=== PATIENT | female | born 1995 | race Caucasian/White ===

== ENCOUNTER 2019-03-15 09:01 | Emergency (ER) | payer OTHER ==
[2019-03-15 09:39] VITALS: BP 106/62
--- NOTE | 2019-03-15 10:16 | ER Document Report ---
HPI - HPI Patient complains to provider of: Skin rash Time Seen by Provider: 03/15/19 10:07 Onset/Duration: Worse Quality of pain: Burning Pain Level: 2 Context: Patient complains of painful rash for the past 5 days that has gradually worsened. Patient denies any fever. Associated Symptoms: Other - Skin rash. denies: Nonproductive cough, Fever Exacerbated by: Denies Relieved by: Denies Similar symptoms previously: No Recently seen / treated by doctor: No - ROS ROS below otherwise negative: Yes Systems Reviewed and Negative: Yes All other systems reviewed and negative - CONSTITUTIONAL Constitutional: DENIES: Fever, Chills - EENT EENT: DENIES: Sore Throat - NEURO Neurology: DENIES: Headache - RESPIRATORY Respiratory: DENIES: Coughing - GASTROINTESTINAL Gastrointestinal: DENIES: Nausea - REPRODUCTIVE Reproductive: DENIES: : - DERM Skin Color: Normal Skin Problems: Rash Past Medical History - General Information source: Patient - Social History Smoking Status: Never Smoker Frequency of alcohol use: Occasional Drug Abuse: None Occupation: Retail Family History: Reviewed & Not Pertinent Patient has suicidal ideation: No Patient has homicidal ideation: No Renal/ Medical History: Denies: Hx Peritoneal Dialysis Psychiatric Medical History: Reports: Hx Depression Past Surgical History: Reports: Hx Orthopedic Surgery - right shoulder Vertical Provider Document - CONSTITUTIONAL Agree With Documented VS: Yes Exam Limitations: No Limitations General Appearance: WD/WN, No Apparent Distress - INFECTION CONTROL TRAVEL OUTSIDE OF THE [place] IN LAST 30 DAYS: No - HEENT HEENT: Atraumatic, Normal ENT Exam, Normocephalic - NECK Neck: Normal Inspection, Supple. negative: Lymphadenopathy-Left, Lymphadenopathy-Right - RESPIRATORY Respiratory: Breath Sounds Normal, No Respiratory Distress - CARDIOVASCULAR Cardiovascular: Regular Rate, Regular Rhythm - BACK Back: Normal Inspection - MUSCULOSKELETAL/EXTREMETIES Musculoskeletal/Extremeties: MAEW, FROM - NEURO Level of Consciousness: Awake, Alert, Appropriate Motor/Sensory: No Motor Deficit - DERM Integumentary: Warm, Dry, Rash - Erythematous vesicular lesions to right buttock Course - Re-evaluation Re-evalutation: 03/15/19 10:15 Patient with painful vesicular rash worrisome for shingles - Vital Signs Vital signs: Temp Pulse Resp BP Pulse Ox 98.1 F 84 16 106/62 100 03/15/19 09:37 03/15/19 09:37 03/15/19 09:37 03/15/19 09:37 03/15/19 09:37 Discharge - Discharge Clinical Impression: Shingles Qualifiers: Herpes zoster complications: without complications Qualified Code(s): B02.9 - Zoster without complications Condition: Stable Disposition: HOME, SELF-CARE Instructions: Shingles ([facility]) Additional Instructions: Return immediately for any new or worsening symptoms Followup with your primary care provider, call tomorrow to make a followup appointment Prescriptions: Lidocaine [Lidoderm 5% (700 mg) Transdermal Patch] 1 patch TP DAILY PRN #10 adh..patch PRN Reason: Valacyclovir HCl [Valacyclovir] 1,000 mg PO TID #21 tablet Referrals: [facility] [Provider Group] - Follow up as needed
== END 2019-03-15 10:22 | disposition home or self-care (01) ==
LOC: ER 09:01
DX: B02.9 Zoster without complications (principal)
CPT/HCPCS: 99282

== ENCOUNTER 2019-07-18 00:35 | Emergency (ER) | payer OTHER ==
--- NOTE | 2019-07-18 01:51 | RADIOLOGY REPORT (SQ) ---
EXAM DESCRIPTION: XR ANKLE 3 OR MORE VIEWS COMPLETED DATE/TME: 07/18/2019 00:00 CLINICAL HISTORY: 24 years, Female, twisted and fell today, severe pain COMPARISON: None. NUMBER OF VIEWS: 3 TECHNIQUE: 3 views right ankle LIMITATIONS: None. FINDINGS: Severe soft tissue swelling laterally. However there is no radiographic evidence for acute fracture or dislocation. Ankle mortise is intact IMPRESSION: Severe lateral soft tissue swelling. No acute fracture copyright 2010 [email or web address]- All Rights Reserved
[2019-07-18] MEDS ORDERED: ACETAMINOPHEN 325 MG TABLET PO ONE (05:39)
[2019-07-18] MEDS ORDERED: KETOROLAC TROMETHAMINE 60 MG/2 ML SDV IM ONE (06:09)
--- NOTE | 2019-07-18 06:20 | ER Document Report ---
ED Extremity Problem, Lower - General Chief Complaint: Ankle Injury Stated Complaint: ANKLE INJURY Time Seen by Provider: 07/18/19 05:48 Primary Care Provider: LOTTIE SMALL MD [ACTIVE STAFF] - Follow up in 3-5 days TENZIN ROBERTSON DO [ACTIVE STAFF] - Follow up in 1 week Notes: 24-year-old female presents with right ankle injury that occurred at 1700 last night. Patient states she fell off a ledge and twisted her ankle. Patient states it hurts to walk on it. Patient denies any previous injury to this ankle. TRAVEL OUTSIDE OF THE [place] IN LAST 30 DAYS: No - Related Data Allergies/Adverse Reactions: Penicillins Allergy (Verified 03/15/19 09:02) vancomycin Allergy (Verified 03/15/19 09:02) Home Medications: depo injection Past Medical History - Social History Smoking Status: Current Some Day Smoker Chew tobacco use (# tins/day): No Frequency of alcohol use: Occasional Family History: Reviewed & Not Pertinent Patient has suicidal ideation: No Patient has homicidal ideation: No Renal/ Medical History: Denies: Hx Peritoneal Dialysis Psychiatric Medical History: Reports: Hx Depression Past Surgical History: Reports: Hx Orthopedic Surgery - right shoulder Review of Systems - Review of Systems Notes: Constitutional: Negative for fever. HENT: Negative for sore throat. Eyes: Negative for visual changes. Cardiovascular: Negative for chest pain. Respiratory: Negative for shortness of breath. Gastrointestinal: Negative for abdominal pain, vomiting or diarrhea. Genitourinary: Negative for dysuria. Musculoskeletal: Positive for ankle pain. Negative for back pain. Skin: Negative for rash. Neurological: Negative for headaches, weakness or numbness. 10 point ROS negative except as marked above and in HPI. Physical Exam - Vital signs Vitals: Temp Pulse Resp BP Pulse Ox 98.8 F 121 H 16 134/81 H 100 07/18/19 00:47 07/18/19 00:47 07/18/19 00:47 07/18/19 00:47 07/18/19 00:47 - Notes Notes: GENERAL: Well-appearing, well-nourished and in no acute distress. HEAD: Atraumatic, normocephalic. EYES: Extraocular movements intact, sclera anicteric, conjunctiva are normal. NECK: Normal range of motion, supple without lymphadenopathy or JVD. EXTREMITIES: No clubbing or cyanosis. Right ankle: Moderate swelling to lateral aspect, distal pedal pulses 2+, FROM, tendons intact, cap refill < 2 sec, FROM of toes NEUROLOGICAL: Cranial nerves II through XII grossly intact. Normal speech, normal gait. PSYCH: Normal mood, normal affect. SKIN: Warm, Dry, normal turgor, no rashes or lesions noted. Course - Re-evaluation Re-evalutation: 07/18/19 right ankle injury. Swelling to lateral aspect. Neurovascular intact. X-ray shows no fractures. Consistent with right ankle sprain. Patient given instructions with rice and ibuprofen. Patient given follow-up with PCP and Ortho. Strict return precautions given. All questions/concerns addressed prior to discharge. - Vital Signs Vital signs: Temp Pulse Resp BP Pulse Ox 98.3 F 96 15 124/80 100 07/18/19 06:44 07/18/19 06:44 07/18/19 06:44 07/18/19 06:44 07/18/19 06:44 Discharge - Discharge Clinical Impression: Right ankle sprain Qualifiers: Encounter type: initial encounter Involved ligament of ankle: unspecified ligament Qualified Code(s): S93.401A - Sprain of unspecified ligament of right ankle, initial encounter Condition: Stable Disposition: HOME, SELF-CARE Instructions: Gael Wrap ([facility]), Use of Crutches ([facility]), Ice & Elevation ([facility]), Ice Packs ([facility]), Sprained Ankle ([facility]) Additional Instructions: Rest, ice, elevate ankle. Your x-ray did not show any fractures. Please take ibuprofen as prescribed. Please follow-up with primary care doctor in 3 to 5 days. Please follow-up with Ortho listed if no improvement in 1 to 2 weeks. Return to ER for any worsening symptoms, including redness, fever, worsening swelling, worsening pain, inability to walk, or any other symptoms that are concerning to you. Prescriptions: Ibuprofen [Motrin 800 mg Tablet] 800 mg PO Q8H PRN #30 tab PRN Reason: Forms: Return to Work Referrals: LOTTIE SMALL MD [ACTIVE STAFF] - Follow up in 3-5 days TENZIN ROBERTSON DO [ACTIVE STAFF] - Follow up in 1 week
[2019-07-18 06:51] VITALS: BP 124/80
== END 2019-07-18 06:51 | disposition home or self-care (01) ==
LOC: ER 00:35
DX: S93.401A Sprain of unspecified ligament of right ankle, initial encounter (principal); W17.89XA Other fall from one level to another, initial encounter; F17.200 Nicotine dependence, unspecified, uncomplicated; Z79.3 Long term (current) use of hormonal contraceptives; Z88.0 Allergy status to penicillin; Z88.1 Allergy status to other antibiotic agents
CPT/HCPCS: 73610; J1885; 96372; 99283

== ENCOUNTER 2019-07-23 11:09 | Emergency (ER) | payer SELFPAY ==
[2019-07-23] MEDS ORDERED: HYDROCODONE/ACETAMINOPHEN 5-325 MG TABLET PO ONE (12:09)
--- NOTE | 2019-07-23 12:11 | ER Document Report ---
HPI - HPI Patient complains to provider of: Right ankle pain Time Seen by Provider: 07/23/19 12:03 Onset: Last week Onset/Duration: Persistent Quality of pain: Achy Pain Level: 4 Context: Patient states that she fell off of a ledge from a height of about 2 to 3 foot 6 days ago. Patient complains of persistent right ankle pain and swelling. Patient states she was seen initially after the injury and diagnosed with a sprain. Patient denies any improvement of her symptoms and does not have insurance so has been unable to follow-up with orthopedics for further eval uation. Patient denies any new injury. Associated Symptoms: Other - Right ankle pain Exacerbated by: Movement Relieved by: Denies Similar symptoms previously: No Recently seen / treated by doctor: Yes - ROS ROS below otherwise negative: Yes Systems Reviewed and Negative: Yes All other systems reviewed and negative - CONSTITUTIONAL Constitutional: DENIES: Fever, Chills - NEURO Neurology: DENIES: Weakness - GASTROINTESTINAL Gastrointestinal: DENIES: Nausea - REPRODUCTIVE LMP: on BC - MUSCULOSKELETAL Musculoskeletal: REPORTS: Extremity pain - DERM Skin Color: Ecchymosis Skin Problems: None Past Medical History - General Information source: Patient - Social History Smoking Status: Former Smoker Chew tobacco use (# tins/day): No Frequency of alcohol use: None Drug Abuse: None Occupation: Retail Family History: Reviewed & Not Pertinent Patient has suicidal ideation: No Patient has homicidal ideation: No Renal/ Medical History: Denies: Hx Peritoneal Dialysis Psychiatric Medical History: Reports: Hx Depression Past Surgical History: Reports: Hx Orthopedic Surgery - right shoulder Vertical Provider Document - CONSTITUTIONAL Agree With Documented VS: Yes Exam Limitations: No Limitations General Appearance: WD/WN, No Apparent Distress - INFECTION CONTROL TRAVEL OUTSIDE OF THE [place] IN LAST 30 DAYS: No - HEENT HEENT: Atraumatic, Normocephalic - NECK Neck: Normal Inspection - RESPIRATORY Respiratory: Breath Sounds Normal, No Respiratory Distress - CARDIOVASCULAR Cardiovascular: Regular Rate, Regular Rhythm Pulses: Normal: Dorsalis pedis - MUSCULOSKELETAL/EXTREMETIES Musculoskeletal/Extremeties: MAEW, Tender - Right ankle joint tenderness over lateral malleolar area with 2+ edema and ecchymosis. Patient also with plantar calcaneal, Edema, Eccymosis - NEURO Level of Consciousness: Awake, Alert, Appropriate Motor/Sensory: No Motor Deficit, No Sensory Deficit - DERM Integumentary: Warm, Dry, No Rash Course - Re-evaluation Re-evalutation: 07/23/19 14:35 Patient updated regarding results of CT scan. Patient advised that she does not fact have a fracture. Patient then stated that she knew that something was going on. Patient states that when she was in CT scan the arch support technician, who is a female, made her feel like she did not need to have the study performed and was asking her why she was having it done. Patient was then informed that the study was going to cost $2000. Patient states that the arch support technician made her feel like she should not be having the test performed. Patient then stated that she did not care how much it cost she just knew that was something wrong with her ankle. 07/23/19 14:[address] Brown regarding patient presentation and management given that we are coming up on a holiday. Dr. Brown agrees with plan for mobilization and advises outpatient follow-up with Ortho for casting at this t steff. No additional treatment advised at this time. - Vital Signs Vital signs: Temp Pulse Resp BP Pulse Ox 97.6 F 98 14 126/71 H 100 07/23/19 11:54 07/23/19 11:21 07/23/19 11:54 07/23/19 11:21 07/23/19 11:54 - Diagnostic Test Radiology reviewed: Image reviewed, Reports reviewed Procedures - Immobilization Right Ankle Pre-Proc Neuro Vasc Exam: Normal Immobilizer type: Short Leg Posterior, Other - Stirrup splint Performed by: PCT Post-Proc Neuro Vasc Exam: Normal Alignment checked and good: Yes Discharge - Discharge Clinical Impression: Right tibial fracture Qualifiers: Encounter type: initial encounter Tibia location: proximal Fracture type: closed Fracture morphology: unspecified fracture morphology Qualified Code(s): S82.101A - Unspecified fracture of upper end of right tibia, initial encounter for closed fracture Condition: Stable Disposition: HOME, SELF-CARE Instructions: Ice & Elevation ([facility]), Oral Narcotic Medication ([facility]), Splint Precautions ([facility]), Fractured Tibia ([facility]) Additional Instructions: Return immediately for any new or worsening symptoms Followup with your primary care provider, call tomorrow to make a followup appointment Follow-up with orthopedics for further evaluation, call Thursday to make a follow- up appointment. Prescriptions: Naproxen [Naprosyn 250 Nmg Tablet] 1 tab PO BID #14 tablet Hydrocodone/Acetaminophen [[place] 5-325 mg Tablet] 1 tab PO Q6 PRN #16 tablet PRN Reason: Forms: Return to Work Referrals: [facility] [Provider Group] - Follow up as needed [facility] [Provider Group] - Follow up as needed YVONNE BROWN MD [ACTIVE PROVISIONAL STAFF] - 07/25/19
--- NOTE | 2019-07-23 14:37 | RADIOLOGY REPORT (SQ) ---
EXAM DESCRIPTION: CT RT LOWER EXTREMITY WITHOUT COMPLETED DATE/TIME: 07/23/2019 2:23 pm REASON FOR STUDY: right ankle/heel pain COMPARISON: None. TECHNIQUE: Axial imaging performed through the right ankle with reformatted coronal and sagittal dax ging windowed for bone and soft tissues. Images saved to PACS. 3D IMAGING: Were 3D images as MIP, SSD, or volume rendering performed at the work station? No All CT scanners at this facility use dose modulation, iterative reconstruction, and/or weight based d osing when appropriate to reduce radiation dose to as low as reasonably achievable (ALARA). [facility]: Dose Right [facility]: CareDose [facility]: Dose Right [facility]: Teradose 4D [facility]: [employer] LIMITATIONS: None. RADIATION DOSE: CT Rad equipment meets quality standard of care and radiation dose reduction techniq ues were employed. CTDIvol: 4.1 mGy. DLP: 94 mGy-cm. mGy. FINDINGS: SOFT TISSUES: No obvious swelling or foreign body. BONES: There is a comminuted oblique coronal fracture of the anterior 3rd of the distal tibia with in tra-articular extension. Fracture extends from anterolateral to posteromedial. MINERALIZATION: Normal. OTHER: No other significant finding. IMPRESSION: Comminuted oblique coronal fracture of the anterior 3rd of the distal tibia with intra-a rticular extension. TECHNICAL DOCUMENTATION: JOB ID: [id number] Quality ID # [id number]: Final reports with documentation of one or more dose reduction techniques (e.g., Au tomated exposure control, adjustment of the mA and/or kV according to patient size, use of iterative reconstruction technique) 2010 [employer]- All Rights Reserved Reading location - IP/workstation name: [email or web address]
[2019-07-23 15:16] VITALS: BP 133/65
== END 2019-07-23 15:15 | disposition home or self-care (01) ==
LOC: ER 11:09
DX: S82.101A Unspecified fracture of upper end of right tibia, initial encounter for closed fracture (principal); M25.571 Pain in right ankle and joints of right foot; W17.89XA Other fall from one level to another, initial encounter
CPT/HCPCS: 99283